=== PATIENT | female | born 1975 | race Two or more races ===

== ENCOUNTER 2024-01-06 14:33 | Emergency (ER) | payer MEDICAID, OTHER ==
[~2024-01-06] VITALS: Ht 157.5 cm; Wt 50.0 kg
[2024-01-06 14:42] VITALS: O2SAT 100
[2024-01-06] MEDS: SODIUM CHLORIDE 0.9% 1,000 ML IV ONE (15:13)
[2024-01-06] MEDS: ONDANSETRON HCL 4MG/2ML INJ IV STA (15:16)
[2024-01-06] MEDS: ACETAMINOPHEN 325MG TABLET PO ONE (15:16)
[2024-01-06] MEDS: KETOROLAC 30MG/ML VIAL IV STA (15:30)
[2024-01-06 15:46] LABS: CHLORIDE 105 mEq/L (98-107); POTASSIUM 3.8 mEq/L (3.5-5.1); SODIUM 138 mEq/L (136-145)
[2024-01-06 15:47] LABS: CALCIUM 9.6 mg/dL (8.7-10.4); CARBON DIOXIDE 24 mEq/L (21-32)
[2024-01-06 15:51] LABS: HCG SCREEN NEGATIVE
[2024-01-06 15:52] LABS: CREATININE 0.8 mg/dL (0.6-1.0); GLUCOSE 97 mg/dL (70-105); UREA NITROGEN BLOOD 9 mg/dL (9-23)
[2024-01-06 15:54] LABS: ALANINE AMINOTRANSFERASE 11 IU/L (10-49); ALBUMIN 4.4 g/dL (3.2-4.8); ASPARTATE AMINOTRANSFERASE 19 IU/L (<34)
[2024-01-06 15:55] LABS: BILIRUBIN TOTAL 0.7 mg/dL (0.1-1.0); PROTEIN TOTAL 6.9 g/dL (6.0-8.3); TROPONIN I HIGH SENSITIVITY < 4 ng/L (3.0-34)
[2024-01-06 16:00] LABS: BASOPHILS % 0.3 % (0.0-2.0); EOSINOPHILS % 0.1 % (0.0-5.0); HEMATOCRIT. 40.1 % (36.0-48.0); HEMOGLOBIN. 13.5 g/dL (12.0-16.0); LYMPHOCYTES % 14.3 % (20.0-50.0); MEAN CORPUSCULAR HEMOGLOBIN 30.9 pg (28.0-32.0); MEAN CORPUSCULAR HGB CONC 33.6 g/dL (31.0-37.0); MEAN CORPUSCULAR VOLUME 92.1 fL (81.0-99.0); MEAN PLATELET VOLUME 9.2 fl (7.4-10.4); MONOCYTES % 4.9 % (2.0-8.0); NEUTROPHILS % 80.4 % (40.0-76.0); PLATELET 296 x1000/uL (130-400); RED BLOOD CELL COUNT 4.36 mill/uL (4.2-5.4); WHITE BLOOD COUNT 10.7 x1000/uL (4.5-11.0)
[2024-01-06 16:25] LABS: CLARITY URINE CLEAR (CLEAR); COLOR URINE YELLOW (YELLOW); GLUCOSE URINE NEGATIVE (NEGATIVE); KETONES URINE 1+ (NEGATIVE); LEUKOCYTE ESTERASE URINE NEGATIVE (NEGATIVE); NITRITE URINE NEGATIVE (NEGATIVE); OCCULT BLOOD URINE NEGATIVE (NEGATIVE); PH URINE >=9.0 (4.5-8.0); PROTEIN URINE NEGATIVE (NEGATIVE); SPECIFIC GRAVITY URINE 1.007 (1.005-1.030); UROBILINOGEN URINE 0.2 E.U./dL (0.2-1.0)
[2024-01-06] MEDS ORDERED: IBUP-2028 MT (17:46)
[2024-01-06] MEDS: IBUPROFEN 400MG TABLET PO ONE (18:25)
[2024-01-06 18:32] VITALS: BP 103/68; PULSE 77; RESP 15; TEMP 36.66960; O2SAT 100
== END 2024-01-06 18:49 | disposition home or self-care (01) ==
LOC: ER 14:33
DX: R10.32 Left lower quadrant pain (principal); R11.2 Nausea with vomiting, unspecified; D21.9 Benign neoplasm of connective and other soft tissue, unspecified
CPT/HCPCS: 99285; 74176; 96374; 96375; 80053; 81003; 84703; 83690; 85025; 84484; 36415; J1885; J2405